=== PATIENT | female | born 1990 | race Caucasian/White ===

== ENCOUNTER 2020-10-26 14:47 | Emergency (ER) | payer OTHER ==
[2020-10-26] MEDS ORDERED: ZOVIRAX800 MG PO (17:12)
[2020-10-26] MEDS ORDERED: PREDNISONE 20MG20 MG PO (17:12)
== END 2020-10-26 17:29 | disposition home or self-care (01) ==
LOC: FER 14:47
DX: G51.0 Bell's palsy (principal); Z88.5 Allergy status to narcotic agent
CPT/HCPCS: 99283